=== PATIENT | female | born 1995 | race Asian ===

== ENCOUNTER 2025-02-25 09:11 | Emergency (ER) | payer OTHER, SELFPAY ==
[2025-02-25 09:28] VITALS: BP 124/81; PULSE 86; RESP 16; TEMP 36.4; O2SAT 99
[2025-02-25 11:14] VITALS: BP 128/92; PULSE 87; RESP 16; O2SAT 100
--- NOTE | 2025-02-25 11:36 | ED.GENADULT ---
HPI - General Adult General Chief complaint: Dental/Oral/Mouth Injury/Pain Stated complaint: Mouth pain/numb, difficulty speaking Time Seen by Provider: 02/25/25 10:58 History of Present Illness HPI narrative: This 29-year-old female comes in with her significant other. She does understand a little bit of anguish but her is able to translate. She awoke this morning with some tingling sensation in the left side of her face and forehead. She states that she brushed her teeth and had difficulty with spitting feeling like the left side of her face was not cooperating. She is otherwise in good health. She does take a cholesterol and blood pressure medication. She does not report any pain. Related Data Home Medications ?Medication ?Instructions ?Recorded ?Confirmed atorvastatin 10 mg tablet 10 mg PO QHS 02/25/25 02/25/25 losartan 50 mg tablet 50 mg PO DAILY 02/25/25 02/25/25 Previous Rx's ?Medication ?Instructions ?Recorded methylprednisolone 4 mg tablets in See Rx Instructions PO .COMPLEX 02/25/25 a dose pack (Medrol (Salomon)) #21 ea valacyclovir 1 gram tablet 1,000 mg PO TID #21 tabs 02/25/25 (Valtrex) Allergies Allergy/AdvReac Type Severity Reaction Status Date / Time No Known Drug Allergies Allergy Verified 02/25/25 09:48 Review of Systems Status of ROS: Reports: 10 or more systems reviewed and unremarkable except as noted in History and below Narrative: Constitutional: No fevers, no weight gain or loss. Eyes: No discharge. No vision changes. HENT: No congestion, no sore throat, no ear pain. Cardiovascular: No chest pain, no palpitations. Respiratory: No shortness of breath, no wheezes, no cough. Gastrointestinal: No abdominal pain, no vomiting, no diarrhea. Genitourinary: No dysuria, no hematuria. Musculoskeletal: Normal range of motion. Skin: No rashes, no pruritis. Neurological: No dizziness, speech change. Left facial decreased sensation and weakness. Endo/Heme/Allergies: No bruising or bleeding. No polydipsia. Pysch: no suicidality, no anxiety, no insomnia. All other systems reviewed and are negative. PFSH PFSH Social History Smoking Status: Unknown if ever smoked Exam Narrative: Exam Narrative: Constitutional: Well-developed, well-nourished, no acute distress. HEENT: Normocephalic, atraumatic. Tympanic membranes appear normal bilaterally. Left face has a slight droop in her mouth. She is able to close her eyes normally but there does appear to be some mild evidence of left-sided facial weakness. Neck: Normal range of motion. Nontender. Supple. Heart: Regular. No murmurs. Normal rate. Intact distal pulses. Lungs: Clear to auscultation. No chest discomfort. No wheezes, rhonchi, or rales. Abdomen: Normal bowel sounds. Nontender. No rebound tenderness. Genitalia: Deferred. Back: No midline tenderness. Normal range of motion. Extremities: Normal range of motion. No injury. Skin: Intact. No rash. Warm. No erythema or pallor. Neurologic: No altered sensation. Alert and oriented. Left-sided facial weakness and decreased sensation typical of Fung's palsy. Psychiatric: No suicidality. No anxiety or depression. No insomnia. Nursing notes and vitals signs are reviewed. Const: Vital Signs, click to edit/add: Vital Signs - 24 hr 02/25/25 09:28 02/25/25 11:14 Temperature 97.6 F Pulse Rate [Pulse Oximeter] 86 87 Respiratory Rate 16 16 Blood Pressure [Ri t Upper Arm] 124/81 128/92 H Pulse Oximetry 99 100 Oxygen Delivery Me thod Room Air Room Air Course Vital Signs Vital signs: Initial Vital Signs Temperature 97.6 F 02/25/25 09:28 Temperature Source Temporal Artery Scan 02/25/25 09:28 Pulse Rate 86 02/25/25 09:28 Respiratory Rate 16 02/25/25 09:28 Blood Pressure 124/81 02/25/25 09:28 Blood Pressure Mean 95 02/25/25 09:28 Blood Pressure Position Sitting 02/25/25 09:28 Pulse Oximetry 99 02/25/25 09:28 Oxygen Delivery Method Room Air 02/25/25 09:28 Vital Signs Temperature 97.6 F 02/25/25 09:28 Pulse Rate 86 02/25/25 09:28 Respiratory Rate 16 02/25/25 09:28 Blood Pressure 124/81 02/25/25 09:28 Pulse Oximetry 99 02/25/25 09:28 Oxygen Delivery Method Room Air 02/25/25 09:28 Temperature 97.6 F 02/25/25 09:28 Pulse Rate 87 02/25/25 11:14 Respiratory Rate 16 02/25/25 11:14 Blood Pressure 128/92 H 02/25/25 11:14 Pulse Oximetry 100 02/25/25 11:14 Oxygen Delivery Method Room Air 02/25/25 11:14 Medical Decision Making MDM Narrative Medical decision making narrative: This patient comes in with report of left-sided facial paresthesias or decreased sensation and mild weakness. These symptoms started this morning. Her symptoms are suspicious of Fung's palsy. The rest of her exam is reassuring. I explained that there are no labs or imaging studies a will help us in this regard as it is a clinical diagnosis. The patient did receive prescriptions for Medrol Dosepak and valacyclovir. I advised her regarding management of this condition, especially if she loses ability to close her eye successfully she will need to cover her I at night and maybe also during the day. Discharge Plan Discharge Clinical Impression: Fung's palsy Patient Disposition: Home, Self-Care Condition: Stable Additional Instructions: Take medication as prescribed. If there is difficulty in closing her left eye use measures to keep the left eyelid shut especially when sleeping. Follow up with MD return as needed. Prescriptions: New valacyclovir [Valtrex] 1 gram tablet 1,000 mg PO TID Qty: 21 0RF methylprednisolone [Medrol (Salomon)] 4 mg tablets,dose pack See Rx Instructions .ROUTE .COMPLEX Qty: 21 0RF Rx Instructions: orally per package directions No Action losartan 50 mg tablet 50 mg PO DAILY atorvastatin 10 mg tablet 10 mg PO QHS Stand Alone Forms: [facility] - [employer] Info Instructions
== END 2025-02-25 12:01 | disposition home or self-care (01) ==
LOC: ED 11:54
PROVIDERS: Emergency Provider Emergency Medicine Emergency Medical Services
DX: G51.0 Bell's palsy (principal)
CPT/HCPCS: 99283; 99284